=== PATIENT | female | born 2000 | race Caucasian/White ===

== ENCOUNTER 2020-11-28 12:24 | Emergency (ER) | payer BC, SELFPAY ==
--- NOTE | 2020-11-28 12:48 | ED.ABDPAIN ---
HPI - Abdominal Pain General Chief Complaint: Unspecified Stated Complaint: Side pain,chest Pain Time Seen by Provider: 11/28/20 12:50 Source: patient Mode of arrival: ambulatory Limitations: no limitations History of Present Illness HPI narrative: Milena Sabillon is a 20 yo female with no PMH comes to [facility] with complaints of abdominal pain on the left that started on Wednesday. She states the pain is always there at best is rated as a 2 worse goes up to a 9, she denies nausea vomiting diarrhea, she states she has a general issue with her stomach that is untreated but she does have a primary care doctor who offered a telemedicine conversation with her. Pain appears to be deep in left abdomen no movement tends to elicit the pain; pain no worse with eating are when hungry; denies dysuria and denies vaginal discharge Related Data Home Medications Medication Instructions Recorded Confirmed Nexplanon 11/28/20 metformin mg PO 11/28/20 naproxen 11/28/20 sertraline mg 11/28/20 Allergies Allergy/AdvReac Type Severity Reaction Status Date / Time No Known Allergies Allergy Unverified 12/22/16 22:59 Review of Systems Review of Systems: Narrative: CONSTITUTIONAL: Denies fever, chills, sweats. EYES: Denies visual changes, redness, discharge. ENT: Denies rhinorrhea, congestion, sore throat, otalgia. CARDIOVASCULAR: Denies chest pain, palpitations, edema. RESPIRATORY: Denies dyspnea, wheezing, cough GASTROINTESTINAL: Has abdominal pain, nausea, no vomiting, diarrhea. GENITOURINARY: Denies dysuria, hematuria, abnormal discharge SKIN: Denies rash or itching. NEUROLOGIC: Denies numbness, or focal weakness. PSYCHIATRIC: Denies anxiety or depression. PMFSH Past Medical History Medical History No acute medical problems Social History Social History (Updated 11/28/20 @ 13:01 by Denice Sutton CNP) Smoking status: Never smoker Alcohol intake: current Gender identity (if verbalized by the patient): Female Comments At time of signature, I agree with nursing past medical, surgical, social and family history. There is no relevant family history pertinent to the presenting complaint. Exam Narrative: Exam Narrative: GENERAL: This is a well-nourished, well-developed patient, in mild distress. HEAD: normocephalic, atraumatic. EYES: Sclera clear/white. Vision is grossly intact. EARS: External ears normal, auditory canals clear and without drainage, TMs normal without perforation. Hearing grossly intact. NOSE: External nose normal without nasal discharge, nares without redness, no rhinorrhea. THROAT: Mucous membranes moist, posterior pharynx NECK: Neck supple, CARDIOVASCULAR: Regular rate and rhythm without murmurs, gallops, or rubs. RESPIRATORY: Clear to auscultation. Breath sounds equal bilaterally. No wheezes, rales, or rhonchi. GASTROINTESTINAL: Abdomen soft, left abdominal pain that cannot be elicited with palpation, pt states is radiates into the left lower side at times SKIN: warm, intact with no suspicious lesions or rash, good texture and turgor. NEURO: awake, alert, and oriented to person, place and time. There were no obvious focal neurologic abnormalities. Steady gait EXTREMITIES: Normal range of motion. BACK: Nontender without deformity Course Vital Signs Vital signs: Vital Signs Temperature 98.5 F 11/28/20 12:52 Pulse Rate 70 11/28/20 12:52 Respiratory Rate 18 11/28/20 12:52 Blood Pressure 114/75 11/28/20 12:52 Pulse Oximetry 99 11/28/20 12:52 Temperature 98.5 F 11/28/20 12:52 Pulse Rate 70 11/28/20 12:52 Respiratory Rate 18 11/28/20 12:52 Blood Pressure 114/75 11/28/20 12:52 Pulse Oximetry 99 11/28/20 12:52 MDM - Abdominal Pain Lab Data Labs: UCG Bedside Result Negative Reference Range: Negative Urine Glucose
[2020-11-28 12:52] VITALS: BP 114/75; PULSE 70; RESP 18; TEMP 36.9; O2SAT 99
--- NOTE | 2020-11-28 13:03 | PC.NURSE ---
in br to obtain ua spec.
== END 2020-11-28 13:39 | disposition short-term general hospital (02) ==
PROVIDERS: Emergency Provider Nurse Practitioner
DX: R10.32 Left lower quadrant pain (principal); E28.2 Polycystic ovarian syndrome; F41.9 Anxiety disorder, unspecified
CPT/HCPCS: 81003; 81025; 99213; G0463

== ENCOUNTER 2020-11-28 14:04 | Emergency (ER) | payer BC, SELFPAY ==
[2020-11-28 14:09] VITALS: BP 135/76; PULSE 80; RESP 18; TEMP 36.3; O2SAT 98
[2020-11-28 14:27] LABS: Basophils Percent Auto 0.4 % (0.2-1.2); Eosinophils Absolute Auto 0.2 K/mm3 (0-0.3); Eosinophils Percent Auto 1.6 % (0-4.4); Hemoglobin 13.3 g/dL (12.0-15.0); Immature Granulocyte Absolute 0.02 K/mm3 (0.00-0.031); Immature Granulocyte Percent A 0.2 % (0-0.5); Lymphocytes Absolute Auto 2.49 K/mm3 (0.9-3.2); Lymphocytes Percent Auto 26.4 % (18.3-44.2); Mean Corpuscular HGB Conc 32.4 g/dl (32-36); Mean Corpuscular Hemoglobin 28.5 pg (26-34); Mean Corpuscular Volume 87.8 fl (80-100); Mean Platelet Volume 9.1 fl (7.4-10.4); Monocytes Absolute Auto 0.5 K/mm3 (0.1-0.6); Monocytes Percent Auto 4.9 % (2.6-8.5); Neutrophils Absolute Auto 6.3 K/mm3 (1.3-6.7); Neutrophils Percent Auto 66.5 % (45.5-73.1); Platelet Count Result 381 k/mm3 (150-375); Red Blood Count 4.67 M/mm3 (4.2-5.4); Red Cell Distribution Width 13.1 % (11.5-14.5); White Blood Count 9.4 K/mm3 (4.5-10.0)
[2020-11-28 14:40] LABS: Alanine Aminotransferase 36 U/L (4-35); Albumin Level 4.4 g/dL (3.5-5.1); Alkaline Phosphatase 95 U/L (38-126); Anion Gap 7 mmol/L (8-16); Aspartate Amino Transferase 32 U/L (14-36); Bilirubin,Total 0.7 mg/dL (0.2-1.3); Blood Urea Nitrogen 10 mg/dL (7-17); Calcium 9.1 mg/dL (8.4-10.2); Carbon Dioxide 29 mmol/L (22-30); Chloride 103 mmol/L (98-107); Estimated CRCL calculation 127 ml/min; Estimated Glomerular Filt Rate > 60; Glucose 91 mg/dL (65-105); Lipase 79 U/L (23-300); Potassium 3.8 mmol/L (3.4-5.0); Sodium 139 mmol/L (137-145)
[2020-11-28 18:16] LABS: Add Urine Microscopic? YES; Appearance Urine Clear (Clear); Bacteria Urine Trace /hpf; Bilirubin Urine Negative (Negative); Blood Urine 2+ (Negative); Color Urine Colorless (Yellow); Glucose Urine UA Negative (Negative); Ketones Urine Negative (Negative); Leukocyte Esterase Ur Negative LEU/UL (Negative); Mucus Urine Rare /lpf; Nitrate Urine Negative (Negative); Protein Urine Negative (Negative); RBC Urine 0-2 /hpf (0-2); Specific Grav Ur 1.008 (1.001-1.035); Squamous Epithelial Cell Urine Rare /hpf (Few); Urobilinogen Urine Negative mg/dL (<2.0); WBC Urine 0-3 /hpf
--- NOTE | 2020-11-28 18:16 | ED.GENADULT ---
HPI - General Adult General Chief complaint: Abdominal Pain Stated complaint: left flank Time Seen by Provider: 11/28/20 18:03 Source: patient Mode of arrival: ambulatory Limitations: no limitations History of Present Illness HPI narrative: Patient is a 20-year-old female who presents to emergency department for evaluation of left flank pain patient notes that the pain has been off and on of days patient denies any fever chills nausea vomiting or similar occurrence in the past. . On arrival to emergency department patient and no obvious distress patient notes that her pain is minimal. Related Data Home Medications Medication Instructions Recorded Confirmed metformin mg PO 11/28/20 sertraline mg 11/28/20 Allergies Allergy/AdvReac Type Severity Reaction Status Date / Time No Known Allergies Allergy Verified 11/28/20 18:03 Review of Systems Review of Systems: All systems reviewed & are unremarkable except as noted in HPI and below PMFSH Past Medical History Medical History No acute medical problems Social History Social History Smoking status: Never smoker Alcohol intake: current Gender identity (if verbalized by the patient): Female Exam Narrative: Exam Narrative: GENERAL: Well-appearing, obese, and in no acute distress. HEAD: Normocephalic, atraumatic. EYES: PERRLA and EOMI. ENT: Nares clear, no rhinorrhea or epistaxis. Mucous membranes moist. CHEST: Clear to auscultation. No respiratory distress. No wheezes rales or rhonchi HEART: Regular rate and rhythm. No murmur heard. Normal peripheral pulses. ABDOMEN: Soft, mild left-sided abdominal tenderness to palpation no rebound or guarding remainder of abdomen nontender, nondistended EXTREMITIES: Normal range of motion. No edema. SKIN: Warm, dry, no rash. NEURO: No focal deficits. Alert and oriented x3. Cranial nerves II through XII grossly intact PSYCH: Normal mood and affect. Course Course Emergency Course: Patient evaluated in the emergency department presented with abdominal pain left flank for the last several days it is coming gone pain is minimal at this time is been taking ibuprofen with improvement patient denies any fever chills nausea vomiting URI symptoms and is otherwise in no distress upon arrival and does not appear uncomfortable patient will be discharged home managed with medications with primary care follow-up provided with reasons to return Vital Signs Vital signs: Vital Signs Temperature 97.4 F L 11/28/20 14:09 Pulse Rate 80 11/28/20 14:09 Respiratory Rate 18 11/28/20 14:09 Blood Pressure 135/76 11/28/20 14:09 Pulse Oximetry 98 11/28/20 14:09 Temperature 97.4 F L 11/28/20 14:09 Pulse Rate 80 11/28/20 14:09 Respiratory Rate 18 11/28/20 14:09 Blood Pressure 135/76 11/28/20 14:09 Pulse Oximetry 98 11/28/20 14:09 Medical Decision Making MDM Narrative Medical decision making narrative: Patient with abdominal pain of uncertain etiology abdomen is with minimal tenderness on evaluation no high risk changes in the blood work or imaging patient is afebrile nontoxic-appearing at this time felt appropriate for outpatient reevaluation given the minimal pain on palpation at this time patient will be discharged home for further evaluation on outpatient basis patient agrees to return if symptoms worsen it is felt that given the minimal tenderness and without other high risk changes that CAT scan imaging is not needed at this time Vital Signs Vital Signs: Vital Signs Temperature 97.4 F L 11/28/20 14:09 Pulse Rate 80 11/28/20 14:09 Respiratory Rate 18 11/28/20 14:09 Blood Pressure 135/76 11/28/20 14:09 Pulse Oximetry 98 11/28/20 14:09 Temperature 97.4 F L 11/28/20 14:09 Pulse Rate 80 11/28/20 14:09 Respiratory Rate 18 11/28/20 14:09 Blood Pressure 135/76 11/28/20 14
--- NOTE | 2020-11-28 19:05 | PC.NURSE ---
went in to dc pt, she put her mother on the phone who complained hat the pt was not scanned. Offered for the pt and family to speak to the provider and discuss care and poc. they were agreeable. informed provide who is to go into the room
== END 2020-11-28 19:37 | disposition home or self-care (01) ==
PROVIDERS: Emergency Medicine; Emergency Provider Emergency Medicine
DX: R10.9 Unspecified abdominal pain (principal); Z79.84 Long term (current) use of oral hypoglycemic drugs
CPT/HCPCS: 36415; 80053; 81001; 81003; 81025; 83690; 85025; 99283

== ENCOUNTER 2020-12-07 09:10 | Outpatient (CLI) | payer BC, SELFPAY ==
--- NOTE | ~2020-12-07 | US_ITS ---
EXAMINATION: US abdomen complete DATE: 12/07/2020 11:11 INDICATION: Abdominal pain TECHNIQUE: Multiple grayscale and Doppler ultrasound images of the abdomen were obtained. COMPARISON: None available FINDINGS: The head and body of the pancreas are normal. The pancreatic tail is obscured by bowel gas. The liver is normal with normal echogenicity and echotexture. No surface nodularity. Normal hepatope andria flow in the main portal vein. The gallbladder is normal with no abnormal wall thickening, pericho lecystic fluid or stones. The normal common bile duct measures 4 mm. There was no sonographic Lopes sign. The visualized portions of the aorta and inferior vena cava are normal. The right kidney measures 10.6 x 3.7 x 5.5 cm. The left kidney measures 9.1 x 5.4 x 4.7 cm. The kidne ys demonstrate normal parenchymal echogenicity. There is no hydronephrosis. The spleen is normal in a ppearance and measures 11.1 cm. IMPRESSION: 1. No sonographic correlate for the patient's symptoms. Reviewed, dictated and finalized at location A. ALT MACHINE OPERATOR
== END 2020-12-07 09:11 ==
PROVIDERS: PCP Nurse Practitioner Family; Visit Provider Nurse Practitioner Family
DX: R10.9 Unspecified abdominal pain (principal)
CPT/HCPCS: 76700

== ENCOUNTER 2020-12-17 12:43 | Outpatient (CLI) | payer BC, SELFPAY ==
--- NOTE | ~2020-12-17 | CT_ITS ---
EXAMINATION: CT abdomen pelvis wo con EXAM DATE: 12/17/2020 12:59 INDICATION: Nausea and generalized abdominal pain. TECHNIQUE: Spiral CT of the abdomen and pelvis was performed without contrast. Axial, coronal and s agittal images were reviewed. The dose-length product (DLP) for this examination was 1074.91 mGy-cm. The exposure was tailored according to patient size (auto mA exposure control), and iterative recon struction (ASIR) was used as additional dose reduction technique. Comparison is made to prior examina tion from 12/23/2016. FINDINGS: The liver, spleen, adrenal glands and pancreas are unremarkable. Gallbladder is unremarkab le. No biliary obstruction. There is no nephrolithiasis or hydronephrosis. The uterus is unremark able. The bladder is unremarkable. There is no retroperitoneal or pelvic lymphadenopathy. The appendix is not positively visualized. There is no pericecal inflammatory change to suggest appe ndicitis. The stomach and small bowel are unremarkable. There is expected amount of colonic stool. No free intraperitoneal gas. The heart is normal in size. There are no pericardial or pleural e ffusions. The lung bases are unremarkable. The bones are unremarkable. IMPRESSION: 1. Unremarkable CT abdomen pelvis examination. Reviewed, dictated and finalized at location A. OR SPEECH PATHOLOGIST
== END 2020-12-17 12:44 ==
LOC: MICIMG 12:43
PROVIDERS: PCP Nurse Practitioner Family; Visit Provider Nurse Practitioner Family
DX: R10.9 Unspecified abdominal pain (principal)
CPT/HCPCS: 74176